=== PATIENT | male | born 2000 | race Caucasian/White ===

== ENCOUNTER 2025-05-25 14:26 | Emergency (ER) | payer OTHER ==
[~2025-05-25] VITALS: Ht 193 cm; Wt 86.2 kg
[2025-05-25 14:31] VITALS: O2SAT 100
[2025-05-25] MEDS: ACETAMINOPHEN 500MG TABLET PO ONE (16:40)
[2025-05-25] MEDS: KETOROLAC 30MG/ML VIAL IM ONE (16:40)
[2025-05-25] MEDS: TRAMADOL 50MG TABLET PO ONE (19:36)
[2025-05-25] MEDS ORDERED: IBUP-2028 MT (19:51)
[2025-05-25] MEDS ORDERED: ACET-2708 MT (19:51)
[2025-05-25 20:21] VITALS: BP 122/60; PULSE 84; RESP 19; TEMP 36.8; O2SAT 100
== END 2025-05-25 20:23 | disposition home or self-care (01) ==
LOC: ER 14:26
DX: M25.562 Pain in left knee (principal); W18.30XA Fall on same level, unspecified, initial encounter; Y93.89 Activity, other specified; Y92.89 Other specified places as the place of occurrence of the external cause; Y99.8 Other external cause status
CPT/HCPCS: 99285; 29505; 73700; 73564; 96372; J1885; A6449; A4606